=== PATIENT | female | born 1960 | race Asian ===

== ENCOUNTER 2018-07-09 17:47 | Emergency (ER) | payer OTHER ==
[2018-07-09 17:58] VITALS: BP 137/83
[2018-07-09] MEDS ORDERED: Tetan/Diph/Pertus SYR(Tdap)* 0.5 ML SYR(BOOSTRIX) use SYR IM ONE (18:21)
--- NOTE | 2018-07-09 18:22 | UC ---
Laceration HPI - HPI Summary HPI Summary: 58 yo female presents with left 5th finger laceration. She tells me that she was cutting food at home and the knife slipped and she sustained a laceration to the volar DIP. Bandaged the area and came to . Unsure date of last tetanus. Pt is right handed. - History Of Current Complaint Chief Complaint: UCLaceration Stated Complaint: FINGER LACERATION Time Seen by Provider: 07/09/18 18:21 Hx Obtained From: Patient Laceration Location: Finger Mechanism Of Injury: Sharp Trauma Onset/Duration: Sudden Onset Severity: Mild Pain Intensity: 1 Pain Scale Used: 0-10 Numeric - Allergies/Home Medications Allergies/Adverse Reactions: Allergies Allergy/AdvReac Type Severity Reaction Status Date / Time No Known Allergies Allergy Verified 07/09/18 17:58 Home Medications: Home Medications NK [No Home Medications Reported] 07/09/18 [History Confirmed 07/09/18] PMH/Surg Hx/FS Hx/Imm Hx - Additional Past Medical History Additional PMH: None - Surgical History Surgical History: None - Family History Known Family History: Positive: None - Social History Lives: With Family Alcohol Use: None Substance Use Type: None Smoking Status (MU): Never Smoked Tobacco - Immunization History Most Recent Tetanus Shot: 2004 Review of Systems All Other Systems Reviewed And Are Negative: Yes Constitutional: Positive: Negative Skin: Positive: Other - Left 5th finger laceration Respiratory: Positive: Negative Cardiovascular: Positive: Negative Neurovascular: Positive: Negative Musculoskeletal: Positive: Negative Neurological: Positive: Negative Psychological: Positive: Negative Physical Exam - Summary Physical Exam Summary: GENERAL: NAD. WDWN. No pain distress. SKIN: LEFT 5th finger: volar aspect overlying the DIP there is a 7mm linear laceration with mild subcutaneous fat exposed. Clean wound. NECK: Supple. Nontender. No lymphadenopathy. CHEST: No accessory muscle use. Breathing comfortably and in no distress. CV: Pulses intact. Cap refill <2seconds MSK: FROM and intact strength at 5th left DIP NEURO: Alert. PSYCH: Age appropriate behavior. Triage Information Reviewed: Yes Vital Signs: Initial Vital Signs Temp 98.0 F 07/09/18 17:56 Pulse 75 07/09/18 17:56 Resp 12 07/09/18 17:56 BP 137/83 07/09/18 17:56 Pulse Ox 100 07/09/18 17:56 Vital Signs Reviewed: Yes Laceration Repair - Laceration Repair 1 Description: Linear Laceration Size After Repair: Length (cm) - 0.7 Modified For Repair: No Anesthesia Used: 2.0% Lido Cleansing Completed Via Routine Prep: Yes Closure Material: Sutures - #2 Closure Method: Single Layer Suture Of: Skin Suture Type: Prolene - 6-0 Laceration Course/Dx - Course/Dx Course Of Treatment: The procedure was explained to the pt and all questions were answered. A time out was performed, witnessed, and signed. The area was irrigated with 200mL sterile saline. 0.5mL of 2% lidocaine without epi was administered and good anesthetization was achieved. In the usual sterile fashion, TWO 6-0 prolene interrupted sutures were placed. The wound was bandaged with a bandaid. Pt tolerated procedure well. tdap updated today - Diagnosis Provider Diagnosis: Finger laceration Discharge - Sign-Out/Discharge Documenting (check all that apply): Patient Departure All imaging exams completed and their final reports reviewed: No Studies - Discharge Plan Condition: Stable Disposition: HOME Patient Education Materials: Care For Your Stitches (ED), Laceration (DC) Referrals: No Primary Care Phys,NOPCP [Primary Care Provider] - Additional Instructions: If you develop a fever, shortness of breath, chest pain, new or worsening symptoms - please call your PCP or go to the ED. 1) Please keep the area bandaged, clean, dry, and intact for the next 24- 48hours. 2) If you develop a fever, colored or thick discharge, increased pain or swelling - please call your PCP or go to the ED. 3) Please return in 10 days to have your TWO sutures removed. - Billing Disposition and Condition Condition: STABLE Disposition: Home
[2018-07-09] MEDS ORDERED: Lidocaine 2% PF * 5 ML VIAL INJ ONE (18:27)
== END 2018-07-09 19:05 | disposition home or self-care (01) ==
LOC: UCEAST 17:47
DX: S61.217A Laceration without foreign body of left little finger without damage to nail, initial encounter (principal); W26.0XXA Contact with knife, initial encounter; Y93.G1 Activity, food preparation and clean up; Y92.000 Kitchen of unspecified non-institutional (private) residence as the place of occurrence of the external cause; Z23 Encounter for immunization
CPT/HCPCS: 12001; 90472; 90715; 99202; G0463